=== PATIENT | male | born 1995 | race Caucasian/White ===

== ENCOUNTER 2019-06-21 14:13 | Emergency (ER) | payer OTHER ==
[~2019-06-21] VITALS: Ht 162.6 cm; Wt 52.2 kg
[2019-06-21] MEDS ORDERED: IBUPROFEN 800800 M1 PO (16:01)
[2019-06-21] MEDS ORDERED: TRAMADOL 50 MG50 MG PO (16:01)
[2019-06-21 16:52] VITALS: BP 125/77
== END 2019-06-21 17:28 | disposition home or self-care (01) ==
LOC: ER 14:13
DX: S62.302A Unspecified fracture of third metacarpal bone, right hand, initial encounter for closed fracture (principal); S62.304A Unspecified fracture of fourth metacarpal bone, right hand, initial encounter for closed fracture; W22.09XA Striking against other stationary object, initial encounter; Y93.89 Activity, other specified; Y92.89 Other specified places as the place of occurrence of the external cause; Y99.8 Other external cause status